=== PATIENT | male | born 1985 | race Caucasian/White ===

== ENCOUNTER 2018-05-07 21:10 | Emergency (ER) | payer OTHER ==
[2018-05-07] MEDS ORDERED: Sodium Chloride 0.9% 10 ML Syringe FLUSH PRN (21:37)
--- NOTE | 2018-05-07 21:44 | EDM.PDOC ---
ED HPI GENERAL MEDICAL PROBLEM - General Chief Complaint: Gastrointestinal Problem Stated Complaint: VOMITTING Time Seen by Provider: 05/07/18 21:24 Source of Information: Reports: Patient History Limitations: Reports: No Limitations - History of Present Illness INITIAL COMMENTS - FREE TEXT/NARRATIVE: Patient is a 32-year-old gentleman who presents to the emergency department this evening with a complaint of nausea, vomiting and diarrhea 1 day. Patient states he's been unable to hold anything down all day. Has an at home with upper respiratory symptoms but no vomiting or diarrhea. Patient denies fever, blood in stool, abdominal pain, upper respiratory symptoms, suspicion for food poisoning, or family members with similar symptoms. Onset: Gradual Onset Date: 05/06/18 Duration: Day(s):, Getting Worse Severity: Mild Improves with: Reports: None Worsens with: Reports: None Associated Symptoms: Reports: Malaise, Nausea/Vomiting. Denies: Chest Pain, Fever/Chills ED ROS GENERAL - Review of Systems Review Of Systems: ROS reveals no pertinent complaints other than HPI. Constitutional: Reports: No Symptoms HEENT: Reports: No Symptoms Respiratory: Reports: No Symptoms Cardiovascular: Reports: No Symptoms Endocrine: Reports: No Symptoms GI/Abdominal: Reports: Diarrhea, Nausea, Vomiting. Denies: Abdominal Pain, Black Stool, Bloody Stool, Hematemesis, Hematochezia, Melena, Mucous in Stool : Reports: No Symptoms Musculoskeletal: Reports: No Symptoms Skin: Reports: No Symptoms Neurological: Reports: No Symptoms Psychiatric: Reports: No Symptoms Hematologic/Lymphatic: Reports: No Symptoms Immunologic: Reports: No Symptoms ED EXAM, GI/ABD - Physical Exam Exam: See Below Exam Limited By: No Limitations General Appearance: Alert, WD/WN, No Apparent Distress Eyes: Bilateral: Normal Appearance Nose: Normal Inspection, Normal Mucosa, No Blood Throat/Mouth: Normal Inspection, Normal Oropharynx, No Airway Compromise Head: Atraumatic, Normocephalic Neck: Normal Inspection, Supple Respiratory/Chest: No Respiratory Distress, Lungs Clear, Normal Breath Sounds, No Accessory Muscle Use, Chest Non-Tender Cardiovascular: Regular Rate, Rhythm, No Murmur GI/Abdominal Exam: Soft, Non-Tender, No Organomegaly, No Distention, No Abnormal Bruit, No Mass, Abnormal Bowel Sounds (Moderately hyperactive) Back Exam: Normal Inspection. No: CVA Tenderness (L), CVA Tenderness (R) Extremities: Normal Inspection Neurological: Alert, Oriented, Normal Cognition Psychiatric: Normal Affect, Normal Mood Skin Exam: Warm, Dry, Intact, Normal Color, No Rash Lymphatic: No Adenopathy Course - Vital Signs Last Recorded V/S: Last Vital Signs Temp 97.3 F 05/07/18 22:06 Pulse 89 05/07/18 22:06 Resp 16 05/07/18 22:06 BP 157/70 H 05/07/18 22:06 Pulse Ox 99 05/07/18 22:06 - Orders/Labs/Meds Orders: Active Orders 24 hr Category Date Time Status Peripheral IV Care [RC] . DIRECTED Care 05/07/18 21:38 Active Ondansetron [Zofran ODT] Med 05/07/18 23:00 Once 12 mg PO ONETIME ONE Sodium Chloride 0.9% @ 999 MLS/HR (1000ml) Med 05/07/18 22:26 Ordered Sodium Chloride 0.9% [Normal Saline] 1,000 ml IV .BOLUS Sodium Chloride 0.9% [Saline Flush] Med 05/07/18 21:37 Ordered 10 ml FLUSH Q8HR PRN Peripheral IV Insertion Adult [OM.PC] Routine Oth 05/07/18 21:37 Ordered Medication Orders Sodium Chloride (Normal Saline) 1,000 mls @ 999 mls/hr IV .BOLUS ONE Stop: 05/07/18 23:26 Ondansetron HCl (Zofran Odt) 12 mg PO ONETIME ONE Stop: 05/07/18 23:01 Sodium Chloride (Saline Flush) 10 ml FLUSH Q8HR PRN PRN Reason: keep vein open Labs: Laboratory Tests 05/07/18 05/07/18 Range/Units 21:50 21:50 WBC 7.44 (5.00-10.00) 10^3/uL RBC 5.34 (4.50-6.00) 10^6/uL Hgb 16.5 (13.0-17.0) g/dL Hct 46.7 (40.0-52.0) % MCV 87.5 (82.0-92.0) fL MCH 30.9 (27.0-31.0) pg MCHC 35.3 (32.0-36.0) g/dL RDW 12.2 (11.5-14.5) % Plt Count 219 (150-400) 10^3/uL MPV 9.5 (7.4-10.4) fL Immature Gran % (Auto) 0.3 (0.0-5.0) % Neut % (Auto) 72.6 H (50.0-70.0) % Lymph % (Auto) 18.0 L (20.0-40.0) % Gilchrist % (Auto) 6.5 (2.0-8.0) % Eos % (Auto) 2.3 (1.0-3.0) % Baso % (Auto) 0.3 (0.0-1.0) % Immature Gran # (Auto) 0.02 (0.00-0.50) 10^3/uL Neut # (Auto) 5.41 (2.50-7.00) 10^3/uL Lymph # (Auto) 1.34 (1.00-4.00) 10^3/uL Gilchrist # (Auto) 0.48 (0.10-0.80) 10^3/uL Eos # (Auto) 0.17 (0.10-0.30) 10^3/uL Baso # (Auto) 0.02 (0.00-0.10) 10^3/uL Sodium 141 (136-145) mmol/L Potassium 3.2 L (3.3-5.3) mmol/L Chloride 102 (98-115) mmol/L Carbon Dioxide 20.2 L (21.0-32.0) mmol/L Anion Gap 22.0 H (5-15) mmol/L BUN 23 (6-25) mg/dL Creatinine 1.27 H (0.51-1.17) mg/dL Est Cr Clr Drug Dosing TNP Estimated GFR (MDRD) > 60 mL/min Glucose 118 H (75 - 99) mg/dL Calcium 9.4 (8.7-10.3) mg/dL Total Bilirubin 0.8 (0.2-1.0) mg/dL AST 20 (15-37) U/L ALT 28 (12-78) U/L Alkaline Phosphatase 82 (46-116) IU/L Total Protein 8.4 H (6.4-8.2) g/dL Albumin 4.51 (3.00-4.80) g/dL Meds: Medications Generic Name Dose Route Start Last Admin Trade Name Chyna PRN Reason Stop Dose Admin Sodium Chloride 1,000 mls @ 999 mls/hr 05/07/18 22:26 Normal Saline IV 05/07/18 23:26 .BOLUS ONE Ondansetron HCl 12 mg 05/07/18 23:00 Zofran Odt PO 05/07/18 23:01 ONETIME ONE Sodium Chloride 10 ml 05/07/18 21:37 Saline Flush FLUSH Q8HR PRN keep vein open Discontinued Medications Generic Name Dose Route Start Last Admin Trade Name Floydq PRN Reason Stop Dose Admin Sodium Chloride 1,000 mls @ 999 mls/hr 05/07/18 21:37 Normal Saline IV 05/07/18 22:37 .BOLUS ONE Ondansetron HCl 4 mg 05/07/18 21:37 05/07/18 22:13 Zofran IVPUSH 05/07/18 21:38 4 mg ONETIME ONE Administration - Re-Assessments/Exams Free Text/Narrative Re-Assessment/Exam: 05/07/18 22:59 Patient afebrile, nontoxic appearing, vital signs stable. Patient given 2 L of normal saline and 4 mg of Zofran. No vomiting while in ER and nausea has subsided. Patient will be given 3 4 mg Zofran to go. Patient will follow-up in 1-2 days at [facility]. Departure - Departure Time of Disposition: 23:04 Disposition: Home, Self-Care 01 Condition: Good Clinical Impression: Dehydration, Nausea vomiting and diarrhea, Viral syndrome - Discharge Information Instructions: Nausea and Vomiting, Adult, [id number], Dehydration, Adult, [id number], Rehydration, Adult, Diarrhea, Adult, [id number] Referrals: Pérez Everett MD [Primary Care Provider] - Forms: ED Department Discharge Additional Instructions: Follow up at [facility] in 1-2 days. Return to emergency department sooner if symptoms continue or worsen. - My Orders Last 24 Hours: My Active Orders 05/07/18 21:37 Sodium Chloride 0.9% [Saline Flush] 10 ml FLUSH Q8HR PRN Peripheral IV Insertion Adult [OM.PC] Routine 05/07/18 21:38 Peripheral IV Care [RC] . DIRECTED 05/07/18 22:26 Sodium Chloride 0.9% @ 999 MLS/HR (1000ml) Sodium Chloride 0.9% [Normal Saline] 1,000 ml IV .BOLUS 05/07/18 23:00 Ondansetron [Zofran ODT] 12 mg PO ONETIME ONE - Assessment/Plan Last 24 Hours: My Active Orders 05/07/18 21:37 Sodium Chloride 0.9% [Saline Flush] 10 ml FLUSH Q8HR PRN Peripheral IV Insertion Adult [OM.PC] Routine 05/07/18 21:38 Peripheral IV Care [RC] . DIRECTED 05/07/18 22:26 Sodium Chloride 0.9% @ 999 MLS/HR (1000ml) Sodium Chloride 0.9% [Normal Saline] 1,000 ml IV .BOLUS 05/07/18 23:00 Ondansetron [Zofran ODT] 12 mg PO ONETIME ONE
[2018-05-07] MEDS: Sodium Chloride 0.9% 1,000 ML IV ONE ×2 (22:00→23:00)
[2018-05-07] MEDS: Ondansetron 4 MG/2 ML SDV IVPUSH ONE (22:13)
[2018-05-07 22:21] LABS: CHLORIDE,CL 102 mmol/L (98-115); SODIUM,NA 141 mmol/L (136-145)
[2018-05-08] MEDS: Ondansetron 4 MG Tab.DIS PO ONE (00:01)
== END 2018-05-08 00:15 | disposition home or self-care (01) ==
LOC: KA.ED 21:10
DX: E86.0 Dehydration (principal); R11.2 Nausea with vomiting, unspecified; R19.7 Diarrhea, unspecified; B34.9 Viral infection, unspecified
CPT/HCPCS: 80053; 85025; 87804; 96361; 96374; 99284; A9270-GY; J2405; J7030

== ENCOUNTER 2022-07-16 06:20 | Emergency (ER) | payer OTHER ==
[2022-07-16] MEDS ORDERED: methylPREDNISolone Sodium Succinate 125 MG/2 ML SDV ONE (06:35)
[2022-07-16] MEDS ORDERED: Sodium Chloride 0.9% 10 ML Syringe FLUSH PRN (06:38)
[2022-07-16] MEDS ORDERED: methylPREDNISolone Sodium Succinate 125 MG/2 ML SDV IVPUSH ONE (06:39)
[2022-07-16 07:17] LABS: CHLORIDE,CL 104 mmol/L (98-107); SODIUM,NA 136 mmol/L (136-145)
[2022-07-16 07:19] LABS: ESTIMATED GFR 68 mL/min (>=60)
== END 2022-07-16 07:37 | disposition home or self-care (01) ==
LOC: KA.ED 06:20 → MERGE 06:20 → KA.ED 07:37
DX: L29.9 Pruritus, unspecified (principal); T37.0X5A Adverse effect of sulfonamides, initial encounter
CPT/HCPCS: 80053; 85025; 96374; 99283; 99283-25; J2930; J3490

== ENCOUNTER 2023-03-22 14:26 | Emergency (ER) | payer OTHER ==
[2023-03-22] MEDS ORDERED: Lidocaine 1% 20 ML MDV ONE (14:42)
[2023-03-22] MEDS ORDERED: Bupivacaine 0.5% 10 ML SDV INJECT ONE (15:39)
[2023-03-22] MEDS ORDERED: Diphtheria,Pertussis(Acell),Tetanus Vaccine 0.5 ML Syringe IM ONE (16:00)
[2023-03-22] MEDS ORDERED: Lidocaine 1% 20 ML MDV INJECT ONE (16:00)
== END 2023-03-22 16:22 | disposition home or self-care (01) ==
LOC: KA.ED 14:26
DX: S62.665A Nondisplaced fracture of distal phalanx of left ring finger, initial encounter for closed fracture (principal); S62.633A Displaced fracture of distal phalanx of left middle finger, initial encounter for closed fracture; S61.313A Laceration without foreign body of left middle finger with damage to nail, initial encounter; Z23 Encounter for immunization; Z88.2 Allergy status to sulfonamides; W23.1XXA Caught, crushed, jammed, or pinched between stationary objects, initial encounter
CPT/HCPCS: 12001; 73140; 90715; 99283; J3490; 90471